=== PATIENT | female | born 1965 | race Caucasian/White ===

== ENCOUNTER → 2018-01-26 | Outpatient (CLI) | payer OTHER | END | disposition home or self-care (01) | LOC: WOUND 09:15 | PROVIDERS: ATTEND Podiatrist Foot & Ankle Surgery | DX: E11.621 Type 2 diabetes mellitus with foot ulcer (principal); L97.521 Non-pressure chronic ulcer of other part of left foot limited to breakdown of skin; E11.42 Type 2 diabetes mellitus with diabetic polyneuropathy; Z89.412 Acquired absence of left great toe | CPT/HCPCS: 99204 ==

== ENCOUNTER 2019-04-23 19:34 | Emergency (ER) | payer OTHER ==
[~2019-04-23] VITALS: Ht 167.6 cm; Wt 80.0 kg
[2019-04-23 19:42] VITALS: BP 154/102
[2019-04-23] MEDS ORDERED: FLUORESCEIN OPHTHALMIC 1 MG STRIP ONE (19:49)
[2019-04-23] MEDS ORDERED: PROPARACAINE OPHTH 0.5%, 15ML ONE (19:50)
--- NOTE | 2019-04-23 19:51 | NUR ---
ASSESSMENT MADE. CHART UP FOR MD TO SEE.
[2019-04-23] MEDS ORDERED: PROPARACAINE OPHTH 0.5%, 15ML EACHEYE ONE (20:00)
[2019-04-23] MEDS ORDERED: FLUORESCEIN/BENOXINATE 5 ML DROPS OP ONE (20:00)
--- NOTE | 2019-04-23 21:09 | NUR ---
PT IN CHAIR IN ROOM AT THIS TIME; AWAITING OPTHO CONSULT.
--- NOTE | 2019-04-23 22:04 | NUR ---
Patient/Caregiver given discharge instructions and they have confirmed that they understand the instructions. Patient ambulatory with steady gait.
== END 2019-04-23 22:06 | disposition home or self-care (01) ==
LOC: ED 22:00
DX: S05.01XA Injury of conjunctiva and corneal abrasion without foreign body, right eye, initial encounter (principal); H57.11 Ocular pain, right eye; E11.319 Type 2 diabetes mellitus with unspecified diabetic retinopathy without macular edema; X58.XXXA Exposure to other specified factors, initial encounter; Y93.9 Activity, unspecified; Y92.89 Other specified places as the place of occurrence of the external cause; Y99.8 Other external cause status
CPT/HCPCS: 99283

== ENCOUNTER → 2020-04-02 | Outpatient (CLI) | payer OTHER ==
[2020-04-02 13:19] LABS: ALANINE AMINOTRANSFERASE 25 U/L (12-78); ANION GAP 7 mmol/L (5-15); CALCIUM 8.9 mg/dL (8.5-10.1); CHLORIDE 104 mmol/L (98-107)
[2020-04-02 13:22] LABS: ALBUMIN 3.3 g/dL (3.4-5.0); ALKALINE PHOSPHATASE 118 U/L (45-117); BILIRUBIN,TOTAL 0.3 mg/dL (0.2-1.0); CHOLESTEROL, TOTAL 184 mg/dL (140-239); CREATININE 1.09 mg/dL (0.55-1.02); HDL CHOL % 25 % (28-40); HDL CHOLESTEROL (DIRECT) 46 mg/dL (40-60); LDL CHOLESTEROL,CALCULATED 102 mg/dL (54-169); LDL/HDL RATIO 2.2 (0.5-3.0); TRIGLYCERIDES 181 mg/dL (50-200); VLDL CHOLESTEROL 36 mg/dL (0-25)
== END | disposition home or self-care (01) ==
LOC: CFH 08:25
PROVIDERS: ATTEND Family Medicine
DX: E11.65 Type 2 diabetes mellitus with hyperglycemia (principal); E78.2 Mixed hyperlipidemia; Z20.2 Contact with and (suspected) exposure to infections with a predominantly sexual mode of transmission
CPT/HCPCS: 36415; 80053; 80061; 82043; 83036; 86592; 87491; 87591; 87806; G0475

== ENCOUNTER 2020-05-28 22:03 | Emergency (ER) | payer OTHER ==
[~2020-05-28] VITALS: Ht 170.2 cm; Wt 113.0 kg
--- NOTE | 2020-05-28 22:15 | NUR ---
LATE ENTRY: first contact with pt: pt resting in marisabel, son at bs. pt changed into gown. pt is moaning stating "oh my god, oh my god, oh my god". pt states she came in tonight due to nausea and vomitting since 1600. pt reports throwing up bile about every 30 minutes. pt states moderate amounts. Denies diarrhea. pt states she had a bm yesterday and is still passing flatus. pt reports slight epigastric pain, likely from vomitting. Son at BS. pt placed on bp/spo2 monitoring. wctere. Milagros JACINTO at bs for eval and poc.
[2020-05-28] MEDS ORDERED: SITA1TAB5 PO (22:29)
[2020-05-28] MEDS ORDERED: [UNRECOGNIZED DRUG - OTHER] SQ (22:29)
[2020-05-28] MEDS ORDERED: DAPA10TA PO (22:29)
[2020-05-28] MEDS ORDERED: GABA300C PO (22:30)
[2020-05-28] MEDS ORDERED: ONDANSETRON ODT 4 MG ONE (22:37)
[2020-05-28 22:52] LABS: BASOPHILS # (AUTO) 0.02 x10^3/uL (0-0.1); BASOPHILS % (AUTO) 0 % (0-1); EOSINOPHILS # (AUTO) 0.03 x10^3/uL (0-0.4); EOSINOPHILS % (AUTO) 0 % (1-7); LYMPHOCYTES # (AUTO) 1.66 x10^3/uL (1-3.4); LYMPHOCYTES % (AUTO) 16 % (22-44); MD NO; MEAN CORPUSCULAR HEMOGLOBIN 30.8 pg (27.0-34.8); MEAN CORPUSCULAR HGB CONC 32.5 g/dL (32.4-35.8); MEAN PLATELET VOLUME 7.3 fL (7.4-10.4); MONOCYTES # (AUTO) 0.28 x10^3/uL (0.2-0.8); MONOCYTES % (AUTO) 3 % (2-9); NEUTROPHILS # (AUTO) 8.69 x10^3/uL (1.8-6.8); NEUTROPHILS % (AUTO) 81 % (42-75); PLATELET COUNT 296 x10^3/uL (130-400); RED BLOOD COUNT 4.88 x10^6/uL (3.82-5.3); RED CELL DISTRIBUTION WIDTH 13.9 % (9.6-15.2)
[2020-05-28] MEDS ORDERED: ONDANSETRON ODT 4 MG PO ONE (23:00)
[2020-05-28 23:05] LABS: CALCIUM 9.2 mg/dL (8.5-10.1); CHLORIDE 104 mmol/L (98-107)
[2020-05-28 23:11] LABS: ALANINE AMINOTRANSFERASE 26 U/L (12-78); ALBUMIN 3.5 g/dL (3.4-5.0); ALKALINE PHOSPHATASE 121 U/L (45-117); ANION GAP 8 mmol/L (5-15); BILIRUBIN,TOTAL 0.4 mg/dL (0.2-1.0); CREATININE 0.95 mg/dL (0.55-1.02); TOTAL PROTEIN 8.3 g/dL (6.4-8.2)
[2020-05-28] MEDS ORDERED: MORPHINE SULFATE 4 MG/ML, 1ML ONE (23:15)
[2020-05-28] MEDS ORDERED: PROMETHAZINE 25 MG/ML, 1ML ONE (23:15)
--- NOTE | 2020-05-28 23:29 | NUR ---
pt medicated per jan, pt still laying in bed groaning. pt had one episode of emesis since arrival, approx 200 milliliters of bile colored fluid. pt placed on 2L NC to maintain O2 sat. waiting on US. WCTM. given additional warm blankets for comfort.
[2020-05-28] MEDS ORDERED: MORPHINE SULFATE 4 MG/ML, 1ML IVPush ONE (23:30)
[2020-05-28] MEDS ORDERED: PROMETHAZINE 25 MG/ML, 1ML IM ONE (23:30)
[2020-05-28 23:59] LABS: TROPONIN I < 0.015 ng/mL (0.000-0.045)
--- NOTE | 2020-05-29 00:37 | NUR ---
pt laying in gurney, eyes closed, states "i am feeling a little better", denies additional needs at this time, updated on POC. VSS, NAD, WCTM. waiting for US reults and recheck.
[2020-05-29] MEDS ORDERED: MAALOX/HYOSCYAMINE/LIDOCAINE 45 ML BTL PO ONE (01:00)
--- NOTE | 2020-05-29 01:02 | NUR ---
LATE ENTRY: PT TO CT VIA GURNEY. NAD, RESP WNL, APPEARS COMFORTABLE. PT NOT GROANING OR HOLDING EMESIS BAGS ANYMORE.
--- NOTE | 2020-05-29 01:14 | NUR ---
Note ciro in ED - 05/29/20 at 0114 by AIDAN LATE ENTRY: PT TO CT VIA NEHEMIAH. NAD, RESP WNL, APPEARS COMFORTABLE. PT NOT GROANING OR HOLDING EMESIS BAGS ANYMORE.
--- NOTE | 2020-05-29 01:14 | NUR ---
LATE ENTRY: PT TO CT VIA GURNEY. NAD, RESP WNL, APPEARS COMFORTABLE. PT NOT GROANING OR HOLDING EMESIS BAGS ANYMORE.
[2020-05-29] MEDS ORDERED: OMNIPAQUE 350 MG/ML, 100ML BOTTLE ONE (01:16)
[2020-05-29] MEDS ORDERED: MORPHINE SULFATE 4 MG/ML, 1ML ONE ×2 (01:20→03:16)
--- NOTE | 2020-05-29 01:22 | NUR ---
pt back from CT, pt ambulated to and from restroom with a smooth and steady gait. pt states "pain is getting worse". pt medicated per jan. pt resting back in marisabel, SUZANNE, ABHI. waiting for CT results.
[2020-05-29] MEDS ORDERED: MAALOX/HYOSCYAMINE/LIDOCAINE 45 ML BTL ONE (01:31)
--- NOTE | 2020-05-29 02:47 | NUR ---
pt straight cathed for urine sample, UA walked to lab. Pt tolerated procedure well. Resting in gurney for comfort, updated on POC. NAD, VSS, WCTM. waiting for UA results.
[2020-05-29] MEDS ORDERED: MORPHINE SULFATE 4 MG/ML, 1ML IVPush ONE (03:00)
[2020-05-29] MEDS ORDERED: ONDANSETRON 2MG/ML, 2ML IVPush ONE (03:00)
[2020-05-29] MEDS ORDERED: ONDANSETRON 2MG/ML, 2ML ONE (03:21)
[2020-05-29 03:22] LABS: MICROSCOPIC AUTO
--- NOTE | 2020-05-29 03:23 | NUR ---
PT REPORTED INCREASING PAIN AND NAUSEA. PT MEDICATED PER MAR. PT STATES "I AM HOPING ILL BE ABLE TO SLEEP NOW". PT CONDITION OTHERWISE UNCHANGED. WCTM. WAITING FOR UA RESULTS.
[2020-05-29 03:49] VITALS: BP 146/83
--- NOTE | 2020-05-29 04:38 | NUR ---
Patient given discharge instructions and they have confirmed that they understand the instructions. Patient ambulatory with steady gait. Pt informed that she cant drive at this time due to medications. Pt states she wont drive and will get a ride. NAD, VSS, no belongings left in room at time of dc.
[2020-06-06] MEDS ORDERED: PHEN-583 PO ×2 (13:51)
[2020-06-06] MEDS ORDERED: LEVO750T26 PO ×2 (13:52)
[2020-06-12] MEDS ORDERED: METO10TA82 PO ×2 (15:16)
== END 2020-05-29 04:44 | disposition home or self-care (01) ==
LOC: ED 05-29 01:35
DX: N20.2 Calculus of kidney with calculus of ureter (principal); R10.13 Epigastric pain; R11.0 Nausea; E11.9 Type 2 diabetes mellitus without complications; I51.7 Cardiomegaly
CPT/HCPCS: 36415; 74177; 76700; 80053; 81001; 83690; 84484; 85025; 87077; 87086; 87186; 93005; 96372; 96374; 96375; 96376; 99285; J2270; J2405; J2550; Q0162; Q9967

== ENCOUNTER 2020-05-30 10:42 | Emergency (ER) | payer OTHER ==
[~2020-05-30] VITALS: Ht 170.2 cm; Wt 113.0 kg
[~2020-05-30 10:42] MED LIST: DAPA10TA PO; GABA300C PO; SITA1TAB5 PO; [UNRECOGNIZED DRUG - OTHER] SQ
[2020-05-30] MEDS ORDERED: PROMETHAZINE 25 MG/ML, 1ML ONE (11:13)
[2020-05-30] MEDS ORDERED: HYDROmorphone 1 MG/ML, 1ML INJ ONE (11:13)
[2020-05-30] MEDS ORDERED: HYDROmorphone 1 MG/ML, 1ML INJ IVPush PRN (11:30)
[2020-05-30] MEDS ORDERED: PROMETHAZINE 25 MG/ML, 1ML IM ONE (11:30)
[2020-05-30] MEDS ORDERED: SODIUM CHLORIDE 0.9% 1,000ML IVBOLUS ONE (11:30)
[2020-05-30] MEDS ORDERED: MORPHINE SULFATE 4 MG/ML, 1ML IVPush PRN (11:30)
[2020-05-30] MEDS ORDERED: SODIUM CHLORIDE FLUSH 10ML SYR IVF ONE (11:30)
--- NOTE | 2020-05-30 11:49 | NUR ---
PT MEDICATED ORDERED. PT DESATED AFTER DILAUDID AND PLACED ON 2 LITERS OS NC BRING HER SAT UP TO 100%. PT C/O LLQ ABD TODAY WITH LEFT FLANK PAIN IN CONTRAST TO PAIN YESTERDAY RELATED TO KIDNEY STONE IN THE RIGHT UVJ. PT ON MONITOR. CALL LIGHT WITHIN REACH.
[2020-05-30 11:56] LABS: ALANINE AMINOTRANSFERASE 25 U/L (12-78); ALBUMIN 3.5 g/dL (3.4-5.0); ANION GAP 9 mmol/L (5-15); CALCIUM 8.8 mg/dL (8.5-10.1); CHLORIDE 101 mmol/L (98-107); CREATININE 1.19 mg/dL (0.55-1.02)
[2020-05-30 11:58] LABS: MEAN CORPUSCULAR HEMOGLOBIN 30.9 pg (27.0-34.8); MEAN CORPUSCULAR VOLUME 93.7 fL (80-100); MEAN PLATELET VOLUME 7.7 fL (7.4-10.4); PLATELET COUNT 284 x10^3/uL (130-400); RED BLOOD COUNT 4.97 x10^6/uL (3.82-5.3); RED CELL DISTRIBUTION WIDTH 13.9 % (9.6-15.2)
[2020-05-30 12:03] LABS: ALKALINE PHOSPHATASE 118 U/L (45-117); BILIRUBIN,TOTAL 0.4 mg/dL (0.2-1.0); TOTAL PROTEIN 8.4 g/dL (6.4-8.2)
--- NOTE | 2020-05-30 12:48 | NUR ---
PT IN CT.
[2020-05-30 12:50] LABS: BASOPHILS # (AUTO) 0.08 x10^3/uL (0-0.1); BASOPHILS % (AUTO) 1 % (0-1); EOSINOPHILS # (AUTO) 0.08 x10^3/uL (0-0.4); EOSINOPHILS % (AUTO) 1 % (1-7); LYMPHOCYTES # (AUTO) 2.25 x10^3/uL (1-3.4); LYMPHOCYTES % (AUTO) 17 % (22-44); MD SCAN; MONOCYTES % (AUTO) 3 % (2-9); NEUTROPHILS % (AUTO) 78 % (42-75)
[2020-05-30 13:00] VITALS: BP 149/84
[2020-05-30] MEDS ORDERED: OMNIPAQUE 350 MG/ML, 100ML BOTTLE ONE (13:03)
[2020-05-30 13:18] LABS: MICROSCOPIC NOT IND
--- NOTE | 2020-05-30 13:27 | NUR ---
GLENN PAC AT BEDSIDE FOR RECHECK.
== END 2020-05-30 14:45 | disposition home or self-care (01) ==
LOC: ED 13:51
DX: N13.2 Hydronephrosis with renal and ureteral calculous obstruction (principal); D72.829 Elevated white blood cell count, unspecified; R10.12 Left upper quadrant pain; R10.32 Left lower quadrant pain; R11.10 Vomiting, unspecified; E11.9 Type 2 diabetes mellitus without complications
CPT/HCPCS: 36415; 74177; 80053; 81003; 83605; 83690; 85025; 96361; 96372; 96374; 99285; J1170; J2550; J7030; Q9967

== ENCOUNTER 2020-05-31 12:51 | Inpatient (IN) | payer OTHER ==
[~2020-05-31] VITALS: Ht 170.2 cm; Wt 116.6 kg
[2020-05-31] MEDS ORDERED: KETOROLAC 30 MG/1 ML IVPush ONE (14:00)
[2020-05-31] MEDS ORDERED: DIPHENHYDRAMINE 50 MG/ML, 1ML IVPush ONE (14:00)
[2020-05-31] MEDS ORDERED: METOCLOPRAMIDE 5 MG/ML, 2ML IVPush ONE (14:00)
[2020-05-31] MEDS ORDERED: HYDROmorphone 2 MG/ML, 1ML IVPush PRN (14:00)
[2020-05-31] MEDS ORDERED: DIPHENHYDRAMINE 50 MG/ML, 1ML ONE (14:05)
[2020-05-31] MEDS ORDERED: METOCLOPRAMIDE 5 MG/ML, 2ML ONE (14:05)
[2020-05-31] MEDS ORDERED: KETOROLAC 30 MG/1 ML ONE (14:05)
[2020-05-31] MEDS ORDERED: HYDROmorphone 2 MG/ML, 1ML ONE (14:05)
[2020-05-31 14:11] LABS: MEAN CORPUSCULAR HEMOGLOBIN 31.1 pg (27.0-34.8); MEAN CORPUSCULAR HGB CONC 33.4 g/dL (32.4-35.8); MEAN CORPUSCULAR VOLUME 93.1 fL (80-100); MEAN PLATELET VOLUME 7.4 fL (7.4-10.4); PLATELET COUNT 272 x10^3/uL (130-400); RED BLOOD COUNT 4.89 x10^6/uL (3.82-5.3); RED CELL DISTRIBUTION WIDTH 13.8 % (9.6-15.2)
--- NOTE | 2020-05-31 14:15 | NUR ---
PIV PLACED, LABS DRAWN AND SENT TO LAB. MEDS ADMIN PER JAN. PT PLACED ON OXYGEN FOR SAFETY. PT IS MORE RELAXED. CALL LIGHT IN REACH. MONITORING ATTACHED.
[2020-05-31 14:21] LABS: ANION GAP 7 mmol/L (5-15); CALCIUM 9.1 mg/dL (8.5-10.1); CHLORIDE 103 mmol/L (98-107)
--- NOTE | 2020-05-31 14:29 | NUR ---
UA COLLECTED VIA STRAIGHT CATH AND TAKEN TO LAB. WARM BLANKET PROVIDED. DEIRDRE
[2020-05-31 14:43] LABS: BASOPHILS # (AUTO) 0.02 x10^3/uL (0-0.1); BASOPHILS % (AUTO) 0 % (0-1); EOSINOPHILS # (AUTO) 0.04 x10^3/uL (0-0.4); EOSINOPHILS % (AUTO) 0 % (1-7); LYMPHOCYTES # (AUTO) 1.41 x10^3/uL (1-3.4); LYMPHOCYTES % (AUTO) 14 % (22-44); MD SCAN; MONOCYTES # (AUTO) 0.46 x10^3/uL (0.2-0.8); MONOCYTES % (AUTO) 5 % (2-9); NEUTROPHILS # (AUTO) 8.22 x10^3/uL (1.8-6.8); NEUTROPHILS % (AUTO) 81 % (42-75)
[2020-05-31 14:47] LABS: MICROSCOPIC INDICATED
--- NOTE | 2020-05-31 14:56 | NUR ---
US AT BEDSIDE.
--- NOTE | 2020-05-31 15:35 | NUR ---
US COMPLETE. PT STATES SHE IS FEELING MUCH BETTER AFTER MEDS. HAD AMBULATED TO RESTROOM AND BACK WITH STEADY GAIT. PT RESTING COMFORTABLY ON GURNEY. DEIRDRE.
--- NOTE | 2020-05-31 15:45 | NUR ---
ALL RESULTS ARE BACK AT THIS TIME. CHART UP FOR RECHECK.
--- NOTE | 2020-05-31 16:21 | NUR ---
PT TO BE ADMITTED
--- NOTE | 2020-05-31 17:43 | NUR ---
HOSPITALIST AT BEDSIDE.
--- NOTE | 2020-05-31 17:50 | NUR ---
REPORT GIVEN TO STEPHANIE KHAN.
[2020-05-31] MEDS ORDERED: LORazepam 1MG TABLET PO PRN (18:30)
[2020-05-31] MEDS ORDERED: ZOLPIDEM 5MG TABLET PO PRN (18:30)
[2020-05-31] MEDS ORDERED: BISACODYL 10 MG SUPP PR PRN (18:30)
[2020-05-31] MEDS ORDERED: ACETAMINOPHEN 325 MG TABLET PO PRN (18:30)
[2020-05-31] MEDS ORDERED: hydrALAzine 20 MG/ML, 1ML IVPush PRN (18:30)
[2020-05-31 18:34] VITALS: BP 107/66
[2020-05-31] MEDS: LEVOFLOXACIN/PMX 750MG/150ML 150 ML IV SCH (20:28)
[2020-05-31] MEDS: FAMOTIDINE 20 MG TABLET PO SCH (20:28)
[2020-05-31] MEDS: LACTATED RINGERS 1,000 ML IV SCH (20:30)
[2020-05-31] MEDS: INSULIN LISPRO 100 UNITS/ML, PEN SQ-INSULIN SCH (20:40)
[2020-05-31] MEDS: POLYETHYLENE GLYCOL 17 GM PACKET PO PRN (22:30)
[2020-06-01 00:05] VITALS: BP 108/70
[2020-06-01 06:04] LABS: BASOPHILS # (AUTO) 0.03 x10^3/uL (0-0.1); BASOPHILS % (AUTO) 0 % (0-1); EOSINOPHILS # (AUTO) 0.15 x10^3/uL (0-0.4); EOSINOPHILS % (AUTO) 2 % (1-7); LYMPHOCYTES # (AUTO) 1.97 x10^3/uL (1-3.4); LYMPHOCYTES % (AUTO) 24 % (22-44); MD NO; MEAN CORPUSCULAR HGB CONC 33.3 g/dL (32.4-35.8); MEAN CORPUSCULAR VOLUME 93.2 fL (80-100); MEAN PLATELET VOLUME 7.5 fL (7.4-10.4); MONOCYTES # (AUTO) 0.82 x10^3/uL (0.2-0.8); MONOCYTES % (AUTO) 10 % (2-9); NEUTROPHILS # (AUTO) 5.39 x10^3/uL (1.8-6.8); NEUTROPHILS % (AUTO) 65 % (42-75); PLATELET COUNT 257 x10^3/uL (130-400); RED BLOOD COUNT 4.46 x10^6/uL (3.82-5.3); RED CELL DISTRIBUTION WIDTH 13.8 % (9.6-15.2)
[2020-06-01 06:16] LABS: ALANINE AMINOTRANSFERASE 26 U/L (12-78); ALBUMIN 2.9 g/dL (3.4-5.0); ANION GAP 5 mmol/L (5-15); CALCIUM 8.6 mg/dL (8.5-10.1); CHLORIDE 105 mmol/L (98-107)
[2020-06-01 06:19] LABS: ALKALINE PHOSPHATASE 97 U/L (45-117); BILIRUBIN,TOTAL 0.3 mg/dL (0.2-1.0); CREATININE 1.03 mg/dL (0.55-1.02); TOTAL PROTEIN 6.9 g/dL (6.4-8.2)
[2020-06-01] MEDS: morphine SULFATE 10 MG/ML, 1ML IVPush PRN ×4 (06:20→20:45)
[2020-06-01] MEDS: ONDANSETRON 2MG/ML, 2ML IVPush PRN ×2 (06:20→20:51)
[2020-06-01 06:56] VITALS: BP 154/87
[2020-06-01] MEDS: INSULIN LISPRO 100 UNITS/ML, PEN SQ-INSULIN SCH ×4 (07:00→20:58)
[2020-06-01] MEDS: LACTATED RINGERS 1,000 ML IV SCH ×2 (07:33→18:05)
[2020-06-01] MEDS: SENNA/DOCUSATE TABLET PO SCH (09:00)
[2020-06-01] MEDS: FAMOTIDINE 20 MG TABLET PO SCH (09:00)
[2020-06-01] MEDS ORDERED: MORPHINE SULFATE 4 MG/ML, 1ML IVPush ONE (09:30)
[2020-06-01] MEDS: PANTOPRAZOLE 40 MG IV IVPush SCH ×2 (09:38→22:19)
[2020-06-01] MEDS: ONDANSETRON ODT 4 MG PO PRN (09:41)
[2020-06-01] MEDS ORDERED: MIDAZOLAM 1 MG/ML, 2ML ONE (10:57)
[2020-06-01] MEDS ORDERED: FENTANYL PF 250 MCG/5ML ONE (10:58)
[2020-06-01] MEDS ORDERED: ROCURONIUM 10MG/ML,5ML ONE (10:58)
[2020-06-01] MEDS ORDERED: PROPOFOL 10 MG/ML, 20ML ONE (10:58)
[2020-06-01] MEDS ORDERED: DEXAMETHASONE 4 MG/ML, 1ML ONE (10:58)
[2020-06-01] MEDS ORDERED: ONDANSETRON 2MG/ML, 2ML ONE (10:59)
[2020-06-01] MEDS ORDERED: ACETAMINOPHEN 325 MG TABLET PO PRN (11:00)
[2020-06-01] MEDS ORDERED: LABETALOL 5MG/ML, 20ML IV PRN (11:00)
[2020-06-01] MEDS ORDERED: FENTANYL PF 100 MCG/2ML IV PRN (11:00)
[2020-06-01] MEDS ORDERED: hydrALAzine 20 MG/ML, 1ML IV PRN (11:00)
[2020-06-01] MEDS ORDERED: ONDANSETRON 2MG/ML, 2ML IVPush PRN (11:00)
[2020-06-01] MEDS ORDERED: MEPERIDINE/PF 25MG/0.5ML IVPush PRN (11:00)
[2020-06-01] MEDS ORDERED: PROMETHAZINE 25 MG/ML, 1ML IVPush PRN (11:00)
[2020-06-01] MEDS ORDERED: HYDROmorphone 1 MG/ML, 1ML INJ IVPush PRN (11:00)
[2020-06-01] MEDS ORDERED: OXYcodone 5 MG/5 ML ORAL.SOL UDC PO PRN (11:00)
[2020-06-01] MEDS ORDERED: OMNIPAQUE 350 MG/ML, 50 ML BOTTLE ONE (12:43)
[2020-06-01] MEDS ORDERED: PHENAZOPYRIDINE 200 MG TABLET ONE (12:57)
[2020-06-01] MEDS ORDERED: FENTANYL PF 100 MCG/2ML ONE (12:58)
[2020-06-01] MEDS ORDERED: PHENAZOPYRIDINE 200 MG TABLET PO ONE (13:30)
[2020-06-01 14:30] VITALS: BP 143/84
[2020-06-01] MEDS: OXYcodone IR 5MG TABLET PO PRN (18:11)
[2020-06-01 18:43] VITALS: BP 133/84
[2020-06-01] MEDS: PHENAZOPYRIDINE 200 MG TABLET PO SCH (20:47)
[2020-06-01] MEDS: LEVOFLOXACIN/PMX 750MG/150ML 150 ML IV SCH (20:48)
[2020-06-02 00:38] VITALS: BP 156/82
[2020-06-02] MEDS: ONDANSETRON ODT 4 MG PO PRN (00:48)
[2020-06-02] MEDS: morphine SULFATE 10 MG/ML, 1ML IVPush PRN ×3 (00:48→11:29)
[2020-06-02] MEDS: ONDANSETRON 2MG/ML, 2ML IVPush PRN ×3 (04:43→23:47)
[2020-06-02 05:45] LABS: BASOPHILS # (AUTO) 0.03 x10^3/uL (0-0.1); BASOPHILS % (AUTO) 0 % (0-1); EOSINOPHILS # (AUTO) 0.06 x10^3/uL (0-0.4); EOSINOPHILS % (AUTO) 1 % (1-7); LYMPHOCYTES # (AUTO) 2.18 x10^3/uL (1-3.4); LYMPHOCYTES % (AUTO) 18 % (22-44); MD NO; MEAN CORPUSCULAR HGB CONC 33.1 g/dL (32.4-35.8); MEAN CORPUSCULAR VOLUME 93.6 fL (80-100); MEAN PLATELET VOLUME 7.8 fL (7.4-10.4); MONOCYTES # (AUTO) 0.99 x10^3/uL (0.2-0.8); MONOCYTES % (AUTO) 8 % (2-9); NEUTROPHILS # (AUTO) 8.74 x10^3/uL (1.8-6.8); NEUTROPHILS % (AUTO) 73 % (42-75); PLATELET COUNT 263 x10^3/uL (130-400); RED BLOOD COUNT 4.62 x10^6/uL (3.82-5.3); RED CELL DISTRIBUTION WIDTH 13.6 % (9.6-15.2)
[2020-06-02 05:55] LABS: ANION GAP 6 mmol/L (5-15); CALCIUM 8.4 mg/dL (8.5-10.1); CHLORIDE 103 mmol/L (98-107)
[2020-06-02 05:58] LABS: CREATININE 0.87 mg/dL (0.55-1.02)
[2020-06-02] MEDS: INSULIN LISPRO 100 UNITS/ML, PEN SQ-INSULIN SCH ×4 (07:00→21:00)
[2020-06-02 07:35] VITALS: BP 145/79
[2020-06-02] MEDS: PANTOPRAZOLE 40 MG IV IVPush SCH ×2 (09:22→20:12)
[2020-06-02] MEDS: PHENAZOPYRIDINE 200 MG TABLET PO SCH ×3 (09:22→20:12)
[2020-06-02] MEDS: SENNA/DOCUSATE TABLET PO SCH (09:22)
[2020-06-02] MEDS: LACTATED RINGERS 1,000 ML IV SCH (09:40)
[2020-06-02] MEDS: OXYcodone IR 5MG TABLET PO PRN (12:14)
[2020-06-02 13:08] VITALS: BP 170/88
[2020-06-02] MEDS ORDERED: HYDROmorphone 1 MG/ML, 1ML INJ IV PRN (13:30)
[2020-06-02] MEDS: HYDROmorphone 1 MG/ML, 1ML INJ IV PRN ×3 (13:55→23:43)
[2020-06-02] MEDS ORDERED: OMNIPAQUE 350 MG/ML, 100ML BOTTLE ONE (14:21)
[2020-06-02] MEDS ORDERED: MAALOX/HYOSCYAMINE/LIDOCAINE 45 ML BTL PO ONE (16:30)
[2020-06-02 19:00] VITALS: BP 113/69
[2020-06-02] MEDS: LEVOFLOXACIN/PMX 750MG/150ML 150 ML IV SCH (20:14)
[2020-06-02] MEDS: POLYETHYLENE GLYCOL 17 GM PACKET PO PRN (20:29)
[2020-06-03] MEDS: OXYcodone IR 5MG TABLET PO PRN (00:24)
[2020-06-03 00:34] VITALS: BP 103/69
[2020-06-03 05:54] LABS: BASOPHILS # (AUTO) 0.04 x10^3/uL (0-0.1); BASOPHILS % (AUTO) 0 % (0-1); EOSINOPHILS % (AUTO) 2 % (1-7); LYMPHOCYTES # (AUTO) 3.09 x10^3/uL (1-3.4); LYMPHOCYTES % (AUTO) 25 % (22-44); MD NO; MEAN CORPUSCULAR HEMOGLOBIN 31.2 pg (27.0-34.8); MEAN CORPUSCULAR HGB CONC 33.5 g/dL (32.4-35.8); MEAN CORPUSCULAR VOLUME 93.1 fL (80-100); MEAN PLATELET VOLUME 7.4 fL (7.4-10.4); MONOCYTES # (AUTO) 1.02 x10^3/uL (0.2-0.8); MONOCYTES % (AUTO) 8 % (2-9); NEUTROPHILS # (AUTO) 7.93 x10^3/uL (1.8-6.8); NEUTROPHILS % (AUTO) 65 % (42-75); PLATELET COUNT 263 x10^3/uL (130-400); RED CELL DISTRIBUTION WIDTH 13.7 % (9.6-15.2)
[2020-06-03 06:01] LABS: ALANINE AMINOTRANSFERASE 21 U/L (12-78); ALBUMIN 2.9 g/dL (3.4-5.0); ANION GAP 5 mmol/L (5-15); CALCIUM 8.7 mg/dL (8.5-10.1); CHLORIDE 101 mmol/L (98-107)
[2020-06-03 06:06] LABS: ALKALINE PHOSPHATASE 89 U/L (45-117); BILIRUBIN,TOTAL 0.4 mg/dL (0.2-1.0); CREATININE 1.07 mg/dL (0.55-1.02); TOTAL PROTEIN 7.3 g/dL (6.4-8.2)
[2020-06-03 06:59] VITALS: BP 150/82
[2020-06-03] MEDS: INSULIN LISPRO 100 UNITS/ML, PEN SQ-INSULIN SCH ×4 (07:00→20:47)
[2020-06-03] MEDS: PANTOPRAZOLE 40 MG IV IVPush SCH ×2 (07:54→20:59)
[2020-06-03] MEDS: PHENAZOPYRIDINE 200 MG TABLET PO SCH ×3 (07:55→19:26)
[2020-06-03] MEDS: SENNA/DOCUSATE TABLET PO SCH ×2 (07:55→20:47)
[2020-06-03] MEDS ORDERED: SINCALIDE (KINEVAC) 5 MCG ONE (10:04)
[2020-06-03] MEDS: HYDROmorphone 1 MG/ML, 1ML INJ IV PRN ×4 (10:54→23:00)
[2020-06-03 13:21] VITALS: BP 146/83
[2020-06-03] MEDS ORDERED: PROPOFOL 50 ML ONE (14:24)
[2020-06-03] MEDS ORDERED: PROMETHAZINE 25 MG/ML, 1ML IVPush PRN (15:00)
[2020-06-03] MEDS ORDERED: OXYcodone 5 MG/5 ML ORAL.SOL UDC PO PRN (15:00)
[2020-06-03] MEDS ORDERED: ACETAMINOPHEN 325 MG TABLET PO PRN (15:00)
[2020-06-03] MEDS ORDERED: ONDANSETRON 2MG/ML, 2ML IVPush PRN (15:00)
[2020-06-03] MEDS ORDERED: PROMETHAZINE 25 MG SUPP PR PRN (15:00)
[2020-06-03] MEDS ORDERED: hydrALAzine 20 MG/ML, 1ML IV PRN (15:00)
[2020-06-03] MEDS ORDERED: LABETALOL 5MG/ML, 20ML IV PRN (15:00)
[2020-06-03 18:40] VITALS: BP 152/90
[2020-06-03] MEDS: ONDANSETRON 2MG/ML, 2ML IVPush PRN (20:05)
[2020-06-03] MEDS: LEVOFLOXACIN/PMX 750MG/150ML 150 ML IV SCH (20:52)
[2020-06-03] MEDS: POLYETHYLENE GLYCOL 17 GM PACKET PO SCH (20:59)
[2020-06-04 00:35] VITALS: BP 103/68
[2020-06-04] MEDS: ONDANSETRON 2MG/ML, 2ML IVPush PRN ×2 (06:01→09:37)
[2020-06-04] MEDS: HYDROmorphone 1 MG/ML, 1ML INJ IV PRN ×2 (06:01→09:37)
[2020-06-04] MEDS: INSULIN LISPRO 100 UNITS/ML, PEN SQ-INSULIN SCH ×4 (07:43→21:33)
[2020-06-04 08:14] VITALS: BP 133/80
[2020-06-04] MEDS ORDERED: OPIUM/BELLADONNA SUPP.RECT 16.2-30 MG PR PRN (08:30)
[2020-06-04 09:32] LABS: BASOPHILS # (AUTO) 0.05 x10^3/uL (0-0.1); BASOPHILS % (AUTO) 0 % (0-1); EOSINOPHILS # (AUTO) 0.23 x10^3/uL (0-0.4); EOSINOPHILS % (AUTO) 2 % (1-7); LYMPHOCYTES # (AUTO) 2.04 x10^3/uL (1-3.4); LYMPHOCYTES % (AUTO) 18 % (22-44); MD NO; MEAN CORPUSCULAR HEMOGLOBIN 30.5 pg (27.0-34.8); MEAN CORPUSCULAR HGB CONC 32.3 g/dL (32.4-35.8); MEAN CORPUSCULAR VOLUME 94.4 fL (80-100); MEAN PLATELET VOLUME 7.3 fL (7.4-10.4); MONOCYTES # (AUTO) 0.89 x10^3/uL (0.2-0.8); MONOCYTES % (AUTO) 8 % (2-9); NEUTROPHILS # (AUTO) 7.95 x10^3/uL (1.8-6.8); NEUTROPHILS % (AUTO) 71 % (42-75); PLATELET COUNT 257 x10^3/uL (130-400); RED BLOOD COUNT 4.59 x10^6/uL (3.82-5.3); RED CELL DISTRIBUTION WIDTH 13.4 % (9.6-15.2)
[2020-06-04] MEDS: PANTOPRAZOLE 40 MG IV IVPush SCH ×2 (09:40→22:34)
[2020-06-04] MEDS: SENNA/DOCUSATE TABLET PO SCH ×2 (09:40→20:39)
[2020-06-04] MEDS: PHENAZOPYRIDINE 200 MG TABLET PO SCH ×3 (09:40→20:36)
[2020-06-04] MEDS: POLYETHYLENE GLYCOL 17 GM PACKET PO SCH ×2 (09:42→20:40)
[2020-06-04 15:08] VITALS: BP 127/80
[2020-06-04] MEDS: LEVOFLOXACIN/PMX 750MG/150ML 150 ML IV SCH (20:36)
[2020-06-04 20:55] VITALS: BP 127/78
[2020-06-05 00:45] VITALS: BP 117/76
[2020-06-05 06:14] LABS: BASOPHILS # (AUTO) 0.04 x10^3/uL (0-0.1); BASOPHILS % (AUTO) 0 % (0-1); EOSINOPHILS # (AUTO) 0.37 x10^3/uL (0-0.4); EOSINOPHILS % (AUTO) 4 % (1-7); LYMPHOCYTES # (AUTO) 2.29 x10^3/uL (1-3.4); LYMPHOCYTES % (AUTO) 26 % (22-44); MD NO; MEAN CORPUSCULAR HGB CONC 33.3 g/dL (32.4-35.8); MEAN CORPUSCULAR VOLUME 93.2 fL (80-100); MEAN PLATELET VOLUME 7.7 fL (7.4-10.4); MONOCYTES # (AUTO) 0.78 x10^3/uL (0.2-0.8); MONOCYTES % (AUTO) 9 % (2-9); NEUTROPHILS # (AUTO) 5.48 x10^3/uL (1.8-6.8); NEUTROPHILS % (AUTO) 61 % (42-75); PLATELET COUNT 266 x10^3/uL (130-400); RED BLOOD COUNT 4.69 x10^6/uL (3.82-5.3); RED CELL DISTRIBUTION WIDTH 13.8 % (9.6-15.2)
[2020-06-05 06:18] LABS: ANION GAP 6 mmol/L (5-15); CALCIUM 8.7 mg/dL (8.5-10.1); CHLORIDE 103 mmol/L (98-107); CREATININE 1.19 mg/dL (0.55-1.02)
[2020-06-05] MEDS: INSULIN LISPRO 100 UNITS/ML, PEN SQ-INSULIN SCH ×4 (07:00→20:15)
[2020-06-05 07:07] VITALS: BP 148/81
[2020-06-05] MEDS: PHENAZOPYRIDINE 200 MG TABLET PO SCH ×3 (08:10→20:21)
[2020-06-05] MEDS: SENNA/DOCUSATE TABLET PO SCH ×2 (08:25→20:20)
[2020-06-05] MEDS: POLYETHYLENE GLYCOL 17 GM PACKET PO SCH ×2 (08:25→20:21)
[2020-06-05] MEDS: OXYcodone IR 5MG TABLET PO PRN ×2 (08:25→11:13)
[2020-06-05] MEDS: PANTOPRAZOLE 40 MG IV IVPush SCH ×2 (08:26→20:21)
[2020-06-05] MEDS: ONDANSETRON ODT 4 MG PO PRN ×2 (08:26→12:59)
[2020-06-05 12:53] VITALS: BP 146/77
[2020-06-05] MEDS: HYDROmorphone 1 MG/ML, 1ML INJ IV PRN ×3 (15:45→22:55)
[2020-06-05] MEDS: ONDANSETRON 2MG/ML, 2ML IVPush PRN ×2 (15:45→22:55)
[2020-06-05] MEDS ORDERED: BUPIVACAINE/PF-EPI 0.5% 1:200K ONE (16:43)
[2020-06-05] MEDS ORDERED: MIDAZOLAM 1 MG/ML, 2ML ONE (16:52)
[2020-06-05] MEDS ORDERED: FENTANYL PF 250 MCG/5ML ONE (16:53)
[2020-06-05] MEDS ORDERED: KETOROLAC 30 MG/1 ML ONE (16:58)
[2020-06-05] MEDS ORDERED: ONDANSETRON 2MG/ML, 2ML ONE ×2 (16:58→18:20)
[2020-06-05] MEDS ORDERED: SUCCINYLCHOLINE 20 MG/ML, 10ML ONE (16:58)
[2020-06-05] MEDS ORDERED: CEFAZOLIN 1,000 MG ONE (16:58)
[2020-06-05] MEDS ORDERED: PROPOFOL 10 MG/ML, 20ML ONE (16:58)
[2020-06-05] MEDS ORDERED: SUGAMMADEX 200 MG/2 ML IVPush ONE (16:58)
[2020-06-05] MEDS ORDERED: FENTANYL PF 100 MCG/2ML IV PRN (17:30)
[2020-06-05] MEDS ORDERED: HYDROmorphone 1 MG/ML, 1ML INJ IVPush PRN (17:30)
[2020-06-05] MEDS ORDERED: PROMETHAZINE 25 MG/ML, 1ML IVPush PRN (17:30)
[2020-06-05] MEDS ORDERED: DIAZEPAM 5 MG/ML, 2ML IVPush PRN (17:30)
[2020-06-05] MEDS ORDERED: MEPERIDINE/PF 25MG/0.5ML IVPush PRN (17:30)
[2020-06-05] MEDS ORDERED: ONDANSETRON 2MG/ML, 2ML IVPush PRN (17:30)
[2020-06-05] MEDS ORDERED: OXYcodone 5 MG/5 ML ORAL.SOL UDC PO PRN (17:30)
[2020-06-05] MEDS ORDERED: ACETAMINOPHEN 325 MG TABLET PO PRN (17:30)
[2020-06-05] MEDS ORDERED: OXYcodone 5 MG/5 ML ORAL.SOL UDC ONE (18:04)
[2020-06-05] MEDS ORDERED: FENTANYL PF 100 MCG/2ML ONE ×2 (18:04→18:37)
[2020-06-05] MEDS: FENTANYL PF 100 MCG/2ML IV PRN ×3 (18:25→18:37)
[2020-06-05] MEDS ORDERED: DIAZEPAM 5 MG/ML, 2ML ONE (18:47)
[2020-06-05 19:36] VITALS: BP 167/95
[2020-06-05] MEDS: LEVOFLOXACIN/PMX 750MG/150ML 150 ML IV SCH (21:28)
[2020-06-06 01:19] VITALS: BP 117/76
[2020-06-06] MEDS: HYDROmorphone 1 MG/ML, 1ML INJ IV PRN ×3 (03:01→12:07)
[2020-06-06] MEDS: OXYcodone IR 5MG TABLET PO PRN ×2 (06:40→16:49)
[2020-06-06] MEDS: INSULIN LISPRO 100 UNITS/ML, PEN SQ-INSULIN SCH ×3 (07:00→16:00)
[2020-06-06 07:21] VITALS: BP 147/82
[2020-06-06] MEDS: SENNA/DOCUSATE TABLET PO SCH (09:00)
[2020-06-06] MEDS: PHENAZOPYRIDINE 200 MG TABLET PO SCH ×2 (09:07→16:49)
[2020-06-06] MEDS: PANTOPRAZOLE 40 MG IV IVPush SCH (09:08)
[2020-06-06] MEDS: POLYETHYLENE GLYCOL 17 GM PACKET PO SCH (09:08)
[2020-06-06] MEDS: ONDANSETRON 2MG/ML, 2ML IVPush PRN (09:08)
[2020-06-06 12:59] VITALS: BP 134/79
[2020-06-06] MEDS ORDERED: OXYC5TAB3 PO (13:51)
[2020-06-06] MEDS ORDERED: ONDA4TAB13 PO (13:51)
[2020-06-06] MEDS ORDERED: SENN-193 PO (13:51)
[2020-06-06] MEDS ORDERED: PHEN-583 PO (13:51)
[2020-06-06] MEDS ORDERED: POLY17PO5 PO (13:51)
[2020-06-06] MEDS ORDERED: LEVO750T26 PO (13:52)
[2020-06-06] MEDS ORDERED: OXYC5SOL8 PO (14:07)
== END 2020-06-06 19:26 | disposition home or self-care (01) | DRG 354 ==
LOC: ED 15:36 → EDIP 16:57 → 3N 18:27
PROVIDERS: ADMIT Internal Medicine; ATTEND Internal Medicine
PROC: 0TC08ZZ Extirpation of Matter from Right Kidney, Via Natural or Artificial Opening Endoscopic (ICD-10-PCS; 2020-06-01)
PROC: 0TC68ZZ Extirpation of Matter from Right Ureter, Via Natural or Artificial Opening Endoscopic (ICD-10-PCS; 2020-06-01)
PROC: 0T768DZ Dilation of Right Ureter with Intraluminal Device, Via Natural or Artificial Opening Endoscopic (ICD-10-PCS; 2020-06-01)
PROC: 0DB68ZX Excision of Stomach, Via Natural or Artificial Opening Endoscopic, Diagnostic (ICD-10-PCS; 2020-06-03)
PROC: 0DB98ZX Excision of Duodenum, Via Natural or Artificial Opening Endoscopic, Diagnostic (ICD-10-PCS; 2020-06-03)
PROC: 0DB58ZX Excision of Esophagus, Via Natural or Artificial Opening Endoscopic, Diagnostic (ICD-10-PCS; 2020-06-03)
PROC: 0WUF4JZ Supplement Abdominal Wall with Synthetic Substitute, Percutaneous Endoscopic Approach (ICD-10-PCS; 2020-06-05)
PROC: 0FT44ZZ Resection of Gallbladder, Percutaneous Endoscopic Approach (ICD-10-PCS; principal; 2020-06-05 17:00)
DX: K43.6 Other and unspecified ventral hernia with obstruction, without gangrene (principal); E87.1 Hypo-osmolality and hyponatremia; N13.6 Pyonephrosis; E78.5 Hyperlipidemia, unspecified; K82.8 Other specified diseases of gallbladder; B96.20 Unspecified Escherichia coli [E. coli] as the cause of diseases classified elsewhere; K31.7 Polyp of stomach and duodenum; Z88.1 Allergy status to other antibiotic agents; Z98.1 Arthrodesis status; Z87.442 Personal history of urinary calculi
CPT/HCPCS: 36415; 71045; 74174; 74420; 76700; 76775; 78227; 80048; 80053; 81001; 82360; 82947; 82962; 83036; 83605; 83690; 83735; 85025; 87040; 87077; 87086; 87186; 87635; 88300; 88304; 88305; 88342; 93005; C1726; G0378; J0690; J1100; J1170; J1885; J1956; J2250; J2405; J2704; J3010; J3360; Q0162; Q9967; A9537; C1781; C2617; C9113; C9898; J0330; J1200; J1815; J2270; J2765; J2805; J7120

== ENCOUNTER 2020-06-11 06:50 | Inpatient (IN) | payer OTHER ==
[~2020-06-11] VITALS: Ht 170.2 cm; Wt 105.5 kg
[~2020-06-11 06:50] MED LIST changes: +LEVO750T26 PO; +ONDA4TAB13 PO; +OXYC5SOL8 PO; +OXYC5TAB3 PO; +PHEN-583 PO; +POLY17PO5 PO; +SENN-193 PO
--- NOTE | 2020-06-11 06:57 | NUR ---
PT BIB [facility] FOR ABDOMINAL PAIN AFTER A STRANGULATED HERNIA SX ON THE , PT WAS RELEASED ON THE . PT WAS NON COMPLIANT WITH PAIN AND NAUSEA MEDS. PT NOW REPORTS EXTREME NAUSEA AND VOMITING. PT REPORTS LAST BM WAS YESTERDAY. BOWEL SOUNDS NORMACTIVE, PAIN ORIGINATES IN LOWER ABDOMEN AND TRAVELS AROUND TO BILATERAL FLANKS BUT MORE SO ON THE LEFT. PT GROANING BUT NAD, VSS. PT PLACED ON SPO2/BP MONITORING. 12.5 PHENERGAN EN ROUTE. MARIAH WEAVER AT FOR EVAL AND POC BS REPORT TO kristy carcamo, pt care transferred at this time Addendum: 06/11/20 at 0715 by AMCCOMB [facility] 140 PER EMS. PIV IN PLACE ON ARRIVAL, PT MEDCIATED PER MAR
[2020-06-11] MEDS ORDERED: SODIUM CHLORIDE 0.9% 1,000ML IVBOLUS ONE (07:00)
[2020-06-11] MEDS ORDERED: DIPHENHYDRAMINE 50 MG/ML, 1ML IVPush ONE (07:00)
[2020-06-11] MEDS ORDERED: METOCLOPRAMIDE 5 MG/ML, 2ML IVPush ONE (07:00)
[2020-06-11] MEDS ORDERED: MORPHINE SULFATE 4 MG/ML, 1ML IVPush PRN (07:00)
[2020-06-11] MEDS ORDERED: ONDANSETRON 2MG/ML, 2ML IVPush ONE (07:00)
[2020-06-11] MEDS ORDERED: DIPHENHYDRAMINE 50 MG/ML, 1ML ONE (07:05)
[2020-06-11] MEDS ORDERED: METOCLOPRAMIDE 5 MG/ML, 2ML ONE (07:06)
[2020-06-11] MEDS ORDERED: ONDANSETRON 2MG/ML, 2ML ONE (07:06)
[2020-06-11] MEDS ORDERED: MORPHINE SULFATE 4 MG/ML, 1ML ONE (07:12)
[2020-06-11 07:21] LABS: MEAN CORPUSCULAR HEMOGLOBIN 30.6 pg (27.0-34.8); MEAN CORPUSCULAR HGB CONC 32.6 g/dL (32.4-35.8); PLATELET COUNT 306 x10^3/uL (130-400); RED BLOOD COUNT 5.19 x10^6/uL (3.82-5.3); RED CELL DISTRIBUTION WIDTH 13.4 % (9.6-15.2)
[2020-06-11 07:32] LABS: ALBUMIN 3.3 g/dL (3.4-5.0); ANION GAP 8 mmol/L (5-15); CALCIUM 9.4 mg/dL (8.5-10.1); CHLORIDE 98 mmol/L (98-107)
[2020-06-11 07:36] LABS: ALANINE AMINOTRANSFERASE 32 U/L (12-78); ALKALINE PHOSPHATASE 103 U/L (45-117); BILIRUBIN,TOTAL 0.5 mg/dL (0.2-1.0); CREATININE 1.08 mg/dL (0.55-1.02); TOTAL PROTEIN 7.9 g/dL (6.4-8.2)
[2020-06-11 07:40] LABS: BASOPHILS # (AUTO) 0.01 x10^3/uL (0-0.1); BASOPHILS % (AUTO) 0 % (0-1); EOSINOPHILS # (AUTO) 0.08 x10^3/uL (0-0.4); EOSINOPHILS % (AUTO) 1 % (1-7); LYMPHOCYTES # (AUTO) 1.74 x10^3/uL (1-3.4); LYMPHOCYTES % (AUTO) 15 % (22-44); MD SCAN; MONOCYTES # (AUTO) 0.68 x10^3/uL (0.2-0.8); MONOCYTES % (AUTO) 6 % (2-9); NEUTROPHILS # (AUTO) 9.39 x10^3/uL (1.8-6.8); NEUTROPHILS % (AUTO) 79 % (42-75)
--- NOTE | 2020-06-11 07:43 | NUR ---
PT TO IMAGING AT THIS TIME
[2020-06-11] MEDS ORDERED: HYDROmorphone 2 MG/ML, 1ML IVPush PRN (10:00)
[2020-06-11] MEDS ORDERED: HYDROmorphone 2 MG/ML, 1ML ONE (10:05)
--- NOTE | 2020-06-11 10:10 | NUR ---
PT MEDICATED WITH ADDITIONAL PAIN MEDICATION PER REQUEST.
[2020-06-11] MEDS ORDERED: OMNIPAQUE 350 MG/ML, 100ML BOTTLE ONE (10:39)
--- NOTE | 2020-06-11 11:06 | NUR ---
PT ASSISTED TO BSC, UA SAMPLE COLLECTED AND SENT TO LAB. RON PALACIOS NOTED, PT WITH NO FURTHER NEEDS AT THIS TIME
[2020-06-11 11:36] LABS: MICROSCOPIC INDICATED
--- NOTE | 2020-06-11 11:58 | NUR ---
PT GIVEN JUICE AND WATER PER MD REQUEST, WILL REASSESS
--- NOTE | 2020-06-11 15:32 | NUR ---
ADMITTING PROVIDER CALLED TO EVAL PT. PT BECOMING AGITATED, STATES SHE HAS BEEN WAITING TOO LONG AND WANTS TO KNOW THE PLAN. JAZMIN JACINTO COMING TO SEE PT NOW
[2020-06-11] MEDS ORDERED: PROMETHAZINE 25 MG/ML, 1ML IM PRN (16:30)
[2020-06-11] MEDS ORDERED: morphine SULFATE 10 MG/ML, 1ML IVPush PRN (16:30)
[2020-06-11] MEDS ORDERED: MAALOX/HYOSCYAMINE/LIDOCAINE 45 ML BTL PO ONE ×2 (16:30→19:00)
[2020-06-11] MEDS ORDERED: ACETAMINOPHEN 325 MG TABLET PO PRN (16:30)
--- NOTE | 2020-06-11 16:41 | NUR ---
HOSPITAL BED ORDERED FROM HOUSEKEEPING
[2020-06-11 17:32] VITALS: BP 147/85
[2020-06-11] MEDS: HEPARIN 5,000 UNITS/ML, 1ML SQ SCH (17:47)
[2020-06-11] MEDS: SODIUM CHLORIDE 0.9% 1,000 ML IV SCH (18:06)
[2020-06-11 19:48] VITALS: BP 146/86
[2020-06-11] MEDS: KETOROLAC 30 MG/1 ML IV PRN (20:00)
[2020-06-11] MEDS: METOCLOPRAMIDE 5 MG/ML, 2ML IVPush PRN (20:30)
[2020-06-11] MEDS: FAMOTIDINE 20 MG TABLET PO SCH (20:30)
[2020-06-11] MEDS ORDERED: FAMOTIDINE 20 MG/2 ML IVPush SCH (21:00)
[2020-06-11] MEDS ORDERED: GABAPENTIN 300 MG CAPSULE PO SCH (21:00)
[2020-06-11 22:15] LABS: TROPONIN I < 0.015 ng/mL (0.000-0.045)
[2020-06-12] MEDS: HEPARIN 5,000 UNITS/ML, 1ML SQ SCH ×2 (00:30→07:10)
[2020-06-12 01:11] VITALS: BP 139/86
[2020-06-12] MEDS: SODIUM CHLORIDE 0.9% 1,000 ML IV SCH (01:38)
[2020-06-12] MEDS: FAMOTIDINE 20 MG TABLET PO SCH (06:44)
[2020-06-12] MEDS: KETOROLAC 30 MG/1 ML IV PRN ×2 (06:44→13:38)
[2020-06-12 07:24] VITALS: BP 147/74
[2020-06-12] MEDS: METOCLOPRAMIDE 5 MG/ML, 2ML IVPush PRN (07:32)
[2020-06-12] MEDS: SUCRALFATE 1 GM/10 ML UDC PO SCH ×3 (08:05→15:34)
[2020-06-12 14:30] VITALS: BP 146/85
[2020-06-12] MEDS ORDERED: METO10TA82 PO (15:16)
[2020-06-12] MEDS ORDERED: SUCR1ORA5 PO (15:16)
[2020-06-12] MEDS ORDERED: FAMO20TA7 PO (15:16)
== END 2020-06-12 16:15 | disposition home or self-care (01) | DRG 683 ==
LOC: ED 07:14 → EDIP 13:38 → 4NW 17:27 → DCLOUNGE 06-12 16:10
PROVIDERS: ADMIT Internal Medicine; ATTEND Internal Medicine
DX: N17.0 Acute kidney failure with tubular necrosis (principal); E87.1 Hypo-osmolality and hyponatremia; E86.0 Dehydration; D72.810 Lymphocytopenia; E11.319 Type 2 diabetes mellitus with unspecified diabetic retinopathy without macular edema; E11.65 Type 2 diabetes mellitus with hyperglycemia; E78.5 Hyperlipidemia, unspecified; E11.40 Type 2 diabetes mellitus with diabetic neuropathy, unspecified; K21.9 Gastro-esophageal reflux disease without esophagitis; K59.00 Constipation, unspecified; Z87.442 Personal history of urinary calculi; Z87.440 Personal history of urinary (tract) infections; Z20.828 Contact with and (suspected) exposure to other viral communicable diseases; Z82.3 Family history of stroke; Z82.49 Family history of ischemic heart disease and other diseases of the circulatory system; Z89.412 Acquired absence of left great toe; Z90.49 Acquired absence of other specified parts of digestive tract
CPT/HCPCS: 36415; 71045; 74018; 74177; 80053; 81001; 83690; 84484; 85025; 87086; 96374; 96375; 99285; G0378; J1170; J1885; J2405; Q9967; J1200; J2270; J2765; J7030

== ENCOUNTER 2020-06-17 16:08 | Emergency (ER) | payer OTHER ==
[~2020-06-17] VITALS: Ht 170.2 cm; Wt 100.0 kg
[~2020-06-17 16:08] MED LIST changes: +FAMO20TA7 PO; +METO10TA82 PO; +SUCR1ORA5 PO
--- NOTE | 2020-06-17 16:30 | NUR ---
"I HAVE KIDNEY STONES" N/V BILAT FLANK PAIN. HX OF STONES. MD COTTON SENT PT IN. PT IN BED IN GOWN WITH CONT SPO2, BPQ 30 MIN. FRIEND AT BEDSIDE. SIDE RAILS UP X2, CALL LIGHT IN ROOM. 18G IV STARTED IN LEFT HAND. AWAITING MD TO SEE. PT MOANING AND CRYING IN ROOM, REPORTS PAIN 9/10. REPOSITIONED PT FOR COMFORT.
[2020-06-17] MEDS ORDERED: ONDANSETRON 2MG/ML, 2ML IVPush ONE (17:00)
[2020-06-17] MEDS ORDERED: MORPHINE SULFATE 4 MG/ML, 1ML IVPush ONE (17:00)
[2020-06-17] MEDS ORDERED: MORPHINE SULFATE 4 MG/ML, 1ML ONE (17:05)
[2020-06-17] MEDS ORDERED: ONDANSETRON 2MG/ML, 2ML ONE (17:05)
--- NOTE | 2020-06-17 17:09 | NUR ---
PT CRYING THAT SHE DID NOT GET DILAUDID AND PHENERGAN OUT LOUD IN THE ROOM, THAT IS NOT GOING TO HELP ME AT ALL. PT AGREES TO TAKE PRESCRIBED MEDICATION.
[2020-06-17 17:22] LABS: BASOPHILS # (AUTO) 0.02 x10^3/uL (0-0.1); BASOPHILS % (AUTO) 0 % (0-1); EOSINOPHILS # (AUTO) 0.13 x10^3/uL (0-0.4); EOSINOPHILS % (AUTO) 1 % (1-7); LYMPHOCYTES # (AUTO) 1.85 x10^3/uL (1-3.4); LYMPHOCYTES % (AUTO) 16 % (22-44); MD NO; MEAN CORPUSCULAR HEMOGLOBIN 30.9 pg (27.0-34.8); MEAN CORPUSCULAR HGB CONC 33.4 g/dL (32.4-35.8); MEAN CORPUSCULAR VOLUME 92.6 fL (80-100); MEAN PLATELET VOLUME 7.6 fL (7.4-10.4); MONOCYTES # (AUTO) 0.72 x10^3/uL (0.2-0.8); MONOCYTES % (AUTO) 6 % (2-9); NEUTROPHILS # (AUTO) 9.01 x10^3/uL (1.8-6.8); NEUTROPHILS % (AUTO) 77 % (42-75); PLATELET COUNT 301 x10^3/uL (130-400); RED BLOOD COUNT 5.27 x10^6/uL (3.82-5.3); RED CELL DISTRIBUTION WIDTH 13.3 % (9.6-15.2)
[2020-06-17] MEDS ORDERED: DIPHENHYDRAMINE 50 MG/ML, 1ML IVPush ONE (17:25)
[2020-06-17 17:28] LABS: ALANINE AMINOTRANSFERASE 84 U/L (12-78); ALBUMIN 3.5 g/dL (3.4-5.0); ANION GAP 10 mmol/L (5-15); CALCIUM 9.1 mg/dL (8.5-10.1); CHLORIDE 101 mmol/L (98-107); CREATININE 1.19 mg/dL (0.55-1.02)
[2020-06-17 17:31] LABS: ALKALINE PHOSPHATASE 119 U/L (45-117); BILIRUBIN,TOTAL 0.6 mg/dL (0.2-1.0); TOTAL PROTEIN 8.1 g/dL (6.4-8.2)
[2020-06-17] MEDS ORDERED: DIPHENHYDRAMINE 50 MG/ML, 1ML ONE (17:36)
[2020-06-17] MEDS ORDERED: MAALOX/HYOSCYAMINE/LIDOCAINE 45 ML BTL ONE (18:28)
[2020-06-17] MEDS ORDERED: FAMOTIDINE 20 MG/2 ML ONE (18:28)
[2020-06-17] MEDS ORDERED: MAALOX/HYOSCYAMINE/LIDOCAINE 45 ML BTL PO ONE (18:30)
[2020-06-17] MEDS ORDERED: FAMOTIDINE 20 MG TABLET PO ONE (18:30)
[2020-06-17] MEDS ORDERED: FAMOTIDINE 20 MG TABLET ONE (18:51)
--- NOTE | 2020-06-17 18:55 | NUR ---
Pt bedside report from Jacques rn. This rn to assume care of pt. Pt in room stating pain medicine is not working and frustrated "that carmencita law wont give my dilaudid, i need a supervisor hairspring fabrication." Will notify supervisor hairspring fabrication and md. Medicated per jan. Awaiting med from rx.
[2020-06-17] MEDS ORDERED: PROMETHAZINE 25 MG/ML, 1ML ONE (19:01)
--- NOTE | 2020-06-17 19:02 | NUR ---
Pa at bedside to talk to pt. crane service technician attempting to take pt to ct. Pt refusing to go to ct because "i cant with how much pain i am in." Chemic Mangler aware of pt.
[2020-06-17] MEDS ORDERED: KETAMINE 10 MG/ML, 20ML ONE (19:07)
--- NOTE | 2020-06-17 19:15 | NUR ---
Pt informed of new medication ordered by pa. Pt states "are you serious, i just have a strangulated hernia and recently discharged from the hospital. Im not playing anymore." Pa aware. Core Maker at bedside to talk to pt at this time. Called ct, pt states she will attempt to do ct.
--- NOTE | 2020-06-17 19:29 | NUR ---
Nuclear Plant Technical Advisor at bedside to talk to pt.
[2020-06-17] MEDS ORDERED: PROMETHAZINE 25 MG/ML, 1ML IM ONE (19:30)
[2020-06-17] MEDS ORDERED: KETAMINE 10 MG/ML, 20ML IV ONE (19:30)
--- NOTE | 2020-06-17 19:33 | NUR ---
Pt in ct.
--- NOTE | 2020-06-17 19:42 | NUR ---
States feeling much better after most recent medical office receptionist assistant. Given Carafate from rx.
--- NOTE | 2020-06-17 19:47 | NUR ---
Pt sats found to be in mid 80's. This rn to put oxygen on pt. When this rn went into room, spo2 went up to 96%. Pt states "oh, i was just holding my breath."
--- NOTE | 2020-06-17 20:00 | NUR ---
Pt still found holding breath in room. "i dont mean to." Put on 2L nc for comfort and O2 sat maintain above 90.
[2020-06-17 20:15] VITALS: BP 138/74
--- NOTE | 2020-06-17 20:41 | NUR ---
Ct results back. Pt up for recheck.
--- NOTE | 2020-06-17 20:51 | NUR ---
Pa at bedside for reassessment.
[2020-06-17] MEDS ORDERED: SUCRALFATE 1 GM TABLET PO SCH (21:00)
== END 2020-06-17 21:31 | disposition home or self-care (01) ==
LOC: ED 18:03
DX: R10.11 Right upper quadrant pain (principal); R10.13 Epigastric pain; R10.31 Right lower quadrant pain; K76.0 Fatty (change of) liver, not elsewhere classified; R11.2 Nausea with vomiting, unspecified; R10.33 Periumbilical pain; I10 Essential (primary) hypertension; E11.9 Type 2 diabetes mellitus without complications; Z90.49 Acquired absence of other specified parts of digestive tract
CPT/HCPCS: 36415; 74176; 80053; 83690; 85025; 96372; 96374; 96375; 99285; J1200; J2270; J2405; J2550

== ENCOUNTER 2020-06-23 19:31 | Inpatient (IN) | payer OTHER ==
[~2020-06-23] VITALS: Ht 170.2 cm; Wt 106.7 kg
[2020-06-23] MEDS ORDERED: METOCLOPRAMIDE 5 MG/ML, 2ML ONE (19:49)
[2020-06-23] MEDS ORDERED: KETOROLAC 30 MG/1 ML ONE (19:50)
[2020-06-23] MEDS ORDERED: ONDANSETRON 2MG/ML, 2ML ONE (19:50)
[2020-06-23] MEDS ORDERED: HYDROmorphone 1 MG/ML, 1ML INJ ONE (19:50)
[2020-06-23] MEDS: HYDROmorphone 1 MG/ML, 1ML INJ IVPush PRN ×2 (19:55→23:33)
[2020-06-23] MEDS ORDERED: METOCLOPRAMIDE 5 MG/ML, 2ML IVPush ONE (20:00)
[2020-06-23] MEDS ORDERED: SODIUM CHLORIDE 0.9% 1,000ML IVBOLUS ONE (20:00)
[2020-06-23] MEDS ORDERED: KETOROLAC 30 MG/1 ML IVPush ONE (20:00)
[2020-06-23] MEDS ORDERED: SODIUM CHLORIDE FLUSH 10ML SYR IVF ONE (20:00)
[2020-06-23] MEDS ORDERED: ONDANSETRON 2MG/ML, 2ML IVPush ONE (20:00)
[2020-06-23 20:24] LABS: BASOPHILS # (AUTO) 0.04 x10^3/uL (0-0.1); BASOPHILS % (AUTO) 1 % (0-1); EOSINOPHILS # (AUTO) 0.12 x10^3/uL (0-0.4); EOSINOPHILS % (AUTO) 1 % (1-7); LYMPHOCYTES % (AUTO) 20 % (22-44); MD NO; MEAN CORPUSCULAR HGB CONC 33.6 g/dL (32.4-35.8); MEAN CORPUSCULAR VOLUME 92.3 fL (80-100); MEAN PLATELET VOLUME 7.6 fL (7.4-10.4); MONOCYTES # (AUTO) 0.67 x10^3/uL (0.2-0.8); MONOCYTES % (AUTO) 7 % (2-9); NEUTROPHILS # (AUTO) 6.61 x10^3/uL (1.8-6.8); NEUTROPHILS % (AUTO) 71 % (42-75); PLATELET COUNT 243 x10^3/uL (130-400); RED BLOOD COUNT 4.94 x10^6/uL (3.82-5.3); RED CELL DISTRIBUTION WIDTH 12.9 % (9.6-15.2)
--- NOTE | 2020-06-23 20:26 | NUR ---
STRAIGHT CATH UA COLLECTED PER ORDER. PT. TOLERATED WELL. REPORTS PAIN DOWN TO 2/10 AFTER MEDS. DENIES OTHER NEEDS. ALL SAFETY MEASURES OSBERVED.
[2020-06-23 20:31] LABS: ALANINE AMINOTRANSFERASE 91 U/L (12-78); ALBUMIN 3.4 g/dL (3.4-5.0); ANION GAP 10 mmol/L (5-15); CHLORIDE 105 mmol/L (98-107); CREATININE 1.04 mg/dL (0.55-1.02)
[2020-06-23 20:34] LABS: ALKALINE PHOSPHATASE 107 U/L (45-117); BILIRUBIN,TOTAL 0.5 mg/dL (0.2-1.0); TOTAL PROTEIN 7.7 g/dL (6.4-8.2)
[2020-06-23 20:35] LABS: MICROSCOPIC AUTO
[2020-06-23] MEDS ORDERED: PROMETHAZINE 25 MG/ML, 1ML ONE (21:26)
--- NOTE | 2020-06-23 21:28 | NUR ---
PT. REQUESTING TO USE BS COMMODE. UPON SITTING UP PT. REPORTED FEELING VERY DIZZY AND STARTED DRY-HEAVING. C/O RETURN OF NAUSEA. PER DR. BROOKS 25MG IM PHENERGAN TO BE ADMIN. PT. UP FOR RECHECK AT THIS TIME.
--- NOTE | 2020-06-23 21:43 | NUR ---
EKG WAS COMPLETED AFTER PT. EPISODE OF DIZZINESS AND PRESENTED TO DR. CRUM. NO IN USE FOR VOIDING AT THIS TIME.
[2020-06-23] MEDS ORDERED: PROMETHAZINE 25 MG/ML, 1ML IM ONE (22:00)
--- NOTE | 2020-06-23 22:08 | NUR ---
[facility] IN TO EVAL PT. FOR ADMISSION.
[2020-06-23] MEDS ORDERED: BISACODYL 10 MG SUPP PR PRN (22:30)
[2020-06-23] MEDS ORDERED: MELATONIN 5 MG TABLET PO PRN (22:30)
[2020-06-23] MEDS ORDERED: hydrALAzine 20 MG/ML, 1ML IVPush PRN (22:30)
[2020-06-23] MEDS ORDERED: POLYETHYLENE GLYCOL 17 GM PACKET PO PRN (22:30)
[2020-06-23] MEDS ORDERED: ACETAMINOPHEN 325 MG TABLET PO PRN (22:30)
[2020-06-23] MEDS ORDERED: PROMETHAZINE 25 MG/ML, 1ML IM PRN (22:30)
--- NOTE | 2020-06-23 22:55 | NUR ---
Report given to BILL GRIFFIN. All questions answered.
[2020-06-23] MEDS ORDERED: SITAGLIPTIN PHOS PO SCH (23:00)
[2020-06-23] MEDS ORDERED: [UNRECOGNIZED DRUG - OTHER] PO SCH (23:00)
[2020-06-23] MEDS ORDERED: ONDANSETRON ODT 4 MG PO PRN (23:00)
[2020-06-23] MEDS ORDERED: METFORMIN HCL PO SCH (23:00)
[2020-06-23 23:10] VITALS: BP 124/76
[2020-06-23] MEDS: SENNA MC SCH (23:30)
[2020-06-23] MEDS: POLYETHYLENE GLYCOL MC SCH (23:30)
[2020-06-24] MEDS: CEFTRIAXONE PMX 1GM/50ML 50 ML IV SCH ×2 (00:04→23:32)
[2020-06-24] MEDS: morphine SULFATE 10 MG/ML, 1ML IVPush PRN ×5 (00:04→20:58)
[2020-06-24] MEDS: ONDANSETRON 2MG/ML, 2ML IVPush PRN ×2 (00:11→17:17)
[2020-06-24 00:39] VITALS: BP 121/73
[2020-06-24] MEDS: METOCLOPRAMIDE 5 MG/ML, 2ML IVPush PRN ×3 (05:27→20:59)
[2020-06-24 05:44] LABS: BASOPHILS # (AUTO) 0.04 x10^3/uL (0-0.1); BASOPHILS % (AUTO) 1 % (0-1); EOSINOPHILS # (AUTO) 0.16 x10^3/uL (0-0.4); EOSINOPHILS % (AUTO) 2 % (1-7); LYMPHOCYTES # (AUTO) 2.58 x10^3/uL (1-3.4); LYMPHOCYTES % (AUTO) 30 % (22-44); MD NO; MEAN CORPUSCULAR HEMOGLOBIN 30.8 pg (27.0-34.8); MEAN CORPUSCULAR HGB CONC 33.2 g/dL (32.4-35.8); MEAN CORPUSCULAR VOLUME 92.8 fL (80-100); MEAN PLATELET VOLUME 7.8 fL (7.4-10.4); MONOCYTES # (AUTO) 0.63 x10^3/uL (0.2-0.8); MONOCYTES % (AUTO) 8 % (2-9); NEUTROPHILS # (AUTO) 5.06 x10^3/uL (1.8-6.8); NEUTROPHILS % (AUTO) 60 % (42-75); PLATELET COUNT 247 x10^3/uL (130-400); RED BLOOD COUNT 4.83 x10^6/uL (3.82-5.3); RED CELL DISTRIBUTION WIDTH 13.3 % (9.6-15.2)
[2020-06-24 05:53] LABS: ANION GAP 7 mmol/L (5-15); CALCIUM 8.6 mg/dL (8.5-10.1); CHLORIDE 108 mmol/L (98-107); CREATININE 0.82 mg/dL (0.55-1.02)
[2020-06-24 06:56] VITALS: BP 111/70
[2020-06-24] MEDS ORDERED: POTASSIUM CHLORIDE 20 MEQ PACKET PO ONE (07:30)
[2020-06-24] MEDS: SENNA MC SCH ×3 (07:30→23:30)
[2020-06-24] MEDS: POLYETHYLENE GLYCOL MC SCH ×3 (07:30→23:30)
[2020-06-24] MEDS ORDERED: GADOTERATE 10 MMOL/20 ML SYR ONE (08:05)
[2020-06-24] MEDS ORDERED: ICN METOCLOPRAMIDE 0.5 MG/ML ORAL PO SCH (09:00)
[2020-06-24] MEDS: PHENAZOPYRIDINE 200 MG TABLET PO SCH ×3 (09:00→20:59)
[2020-06-24] MEDS ORDERED: SENNA/DOCUSATE TABLET PO SCH (09:00)
[2020-06-24] MEDS ORDERED: EXENATIDE SQ SCH (09:00)
[2020-06-24] MEDS ORDERED: TEMPLATE NON-FORMULARY MED. (Dapagliflozin Propanediol (Farxiga) 10 MG) PO SCH (09:00)
[2020-06-24] MEDS ORDERED: FAMOTIDINE 20 MG/2 ML IVPush SCH (09:00)
[2020-06-24] MEDS: POLYETHYLENE GLYCOL 17 GM PACKET PO SCH ×2 (09:18→20:59)
[2020-06-24] MEDS: SUCRALFATE 1 GM/10 ML UDC PO SCH ×4 (09:18→20:59)
[2020-06-24] MEDS: SENNA/DOCUSATE TABLET PO SCH ×2 (09:21→21:00)
[2020-06-24] MEDS: FAMOTIDINE 20 MG TABLET PO SCH ×2 (09:22→20:59)
[2020-06-24] MEDS: INSULIN LISPRO 100 UNITS/ML, PEN SQ-INSULIN SCH ×4 (09:23→21:00)
[2020-06-24] MEDS ORDERED: KETOROLAC 30 MG/1 ML IVPush PRN (11:30)
[2020-06-24] MEDS ORDERED: HYDROcodone/APAP 5/325 TABLET PO PRN (11:30)
[2020-06-24] MEDS: MECLIZINE 25 MG TABLET PO PRN (12:20)
[2020-06-24 16:40] VITALS: BP_SYST 113; BP_SYST 120; BP_SYST 162; BP_DIAS 76; BP_DIAS 85; BP_DIAS 94
[2020-06-24] MEDS: NS + 20MEQ KCL 1,000 ML IV SCH (18:06)
[2020-06-24 18:33] VITALS: BP 165/76
[2020-06-24] MEDS: GABAPENTIN 300 MG CAPSULE PO SCH (20:59)
[2020-06-24] MEDS: ENOXAPARIN 40 MG/0.4 ML SQ SCH (20:59)
[2020-06-25] VITALS (7 sets, daily range): BP systolic 120–155; BP diastolic 81–87
[2020-06-25 05:23] LABS: ALBUMIN 2.9 g/dL (3.4-5.0); ANION GAP 6 mmol/L (5-15); CALCIUM 8.5 mg/dL (8.5-10.1); CHLORIDE 109 mmol/L (98-107)
[2020-06-25 05:27] LABS: ALANINE AMINOTRANSFERASE 79 U/L (12-78); ALKALINE PHOSPHATASE 89 U/L (45-117); BILIRUBIN,TOTAL 0.3 mg/dL (0.2-1.0); CREATININE 0.82 mg/dL (0.55-1.02); TOTAL PROTEIN 6.6 g/dL (6.4-8.2)
[2020-06-25] MEDS: morphine SULFATE 10 MG/ML, 1ML IVPush PRN ×2 (06:14→10:03)
[2020-06-25] MEDS: ONDANSETRON 2MG/ML, 2ML IVPush PRN (06:14)
[2020-06-25] MEDS ORDERED: BUPIVACAINE/PF-EPI 0.5% 1:200K ONE (06:53)
[2020-06-25] MEDS ORDERED: MINERAL OIL 10 ML VIAL MC ONE (06:53)
[2020-06-25] MEDS ORDERED: BACITRACIN 50,000 UNIT ONE (06:53)
[2020-06-25] MEDS ORDERED: VANCOMYCIN 1,000 MG ONE (06:53)
[2020-06-25] MEDS: INSULIN LISPRO 100 UNITS/ML, PEN SQ-INSULIN SCH ×4 (07:00→20:23)
[2020-06-25] MEDS: SENNA MC SCH ×2 (07:30→15:30)
[2020-06-25] MEDS: POLYETHYLENE GLYCOL MC SCH ×2 (07:30→15:30)
[2020-06-25] MEDS: SUCRALFATE 1 GM/10 ML UDC PO SCH ×4 (08:17→20:47)
[2020-06-25] MEDS: FAMOTIDINE 20 MG TABLET PO SCH ×2 (10:01→20:47)
[2020-06-25] MEDS: SENNA/DOCUSATE TABLET PO SCH ×2 (10:02→20:51)
[2020-06-25] MEDS: MECLIZINE 25 MG TABLET PO PRN ×2 (10:02→23:26)
[2020-06-25] MEDS: POLYETHYLENE GLYCOL 17 GM PACKET PO SCH ×2 (10:02→20:51)
[2020-06-25] MEDS: NS + 20MEQ KCL 1,000 ML IV SCH ×3 (10:02→22:20)
[2020-06-25] MEDS: PHENAZOPYRIDINE 200 MG TABLET PO SCH ×3 (10:02→20:51)
[2020-06-25] MEDS ORDERED: MAGNESIUM HYDROXIDE 8%, 30ML UDC PO PRN (10:30)
[2020-06-25] MEDS: METOCLOPRAMIDE 5 MG/ML, 2ML IVPush SCH ×3 (12:17→20:49)
[2020-06-25] MEDS: KETOROLAC 30 MG/1 ML IVPush SCH ×3 (12:18→22:19)
[2020-06-25] MEDS: ENOXAPARIN 40 MG/0.4 ML SQ SCH (20:47)
[2020-06-25] MEDS: GABAPENTIN 300 MG CAPSULE PO SCH (20:48)
[2020-06-25] MEDS: CEFTRIAXONE PMX 1GM/50ML 50 ML IV SCH (23:26)
[2020-06-26 01:53] VITALS: BP 130/69
[2020-06-26] MEDS: METOCLOPRAMIDE 5 MG/ML, 2ML IVPush SCH ×4 (04:30→22:52)
[2020-06-26] MEDS: MECLIZINE 25 MG TABLET PO PRN (04:54)
[2020-06-26] MEDS: SUCRALFATE 1 GM/10 ML UDC PO SCH ×4 (04:54→20:43)
[2020-06-26] MEDS: KETOROLAC 30 MG/1 ML IVPush SCH ×4 (04:54→22:52)
[2020-06-26] MEDS: INSULIN LISPRO 100 UNITS/ML, PEN SQ-INSULIN SCH ×4 (07:00→21:00)
[2020-06-26 07:20] VITALS: BP 136/75
[2020-06-26] MEDS ORDERED: HYDR-3237 PO (08:55)
[2020-06-26] MEDS ORDERED: MECL-101 PO (08:55)
[2020-06-26] MEDS ORDERED: METO10TA82 PO (08:55)
[2020-06-26] MEDS: POLYETHYLENE GLYCOL 17 GM PACKET PO SCH ×2 (09:00→22:51)
[2020-06-26] MEDS: SENNA/DOCUSATE TABLET PO SCH ×2 (09:00→21:00)
[2020-06-26] MEDS: NS + 20MEQ KCL 1,000 ML IV SCH (10:09)
[2020-06-26] MEDS: FAMOTIDINE 20 MG TABLET PO SCH ×2 (10:09→22:51)
[2020-06-26] MEDS: ONDANSETRON 2MG/ML, 2ML IVPush PRN ×2 (10:10→21:11)
[2020-06-26] MEDS ORDERED: MORPHINE SULFATE 4 MG/ML, 1ML IVPush ONE ×2 (12:30→21:00)
[2020-06-26] MEDS ORDERED: GADOTERATE 10 MMOL/20 ML SYR ONE (14:22)
[2020-06-26 16:19] VITALS: BP 147/87
[2020-06-26] MEDS ORDERED: LIDODERM 5% PATCH TD SCH (17:00)
[2020-06-26] MEDS: DEXAMETHASONE 4 MG/ML, 1ML IVPush SCH ×2 (17:09→22:52)
[2020-06-26 19:59] VITALS: BP 163/88
[2020-06-26] MEDS: GABAPENTIN 300 MG CAPSULE PO SCH (22:51)
[2020-06-26] MEDS: ENOXAPARIN 40 MG/0.4 ML SQ SCH (22:52)
[2020-06-26] MEDS: CEFTRIAXONE PMX 1GM/50ML 50 ML IV SCH (22:53)
[2020-06-27] MEDS: NS + 20MEQ KCL 1,000 ML IV SCH (00:34)
[2020-06-27 01:07] VITALS: BP 121/78
[2020-06-27] MEDS: DEXAMETHASONE 4 MG/ML, 1ML IVPush SCH ×2 (04:55→11:46)
[2020-06-27] MEDS: METOCLOPRAMIDE 5 MG/ML, 2ML IVPush SCH ×2 (04:55→10:56)
[2020-06-27] MEDS: KETOROLAC 30 MG/1 ML IVPush SCH ×2 (04:55→10:56)
[2020-06-27 07:25] VITALS: BP 112/71
[2020-06-27] MEDS: SUCRALFATE 1 GM/10 ML UDC PO SCH ×2 (08:11→11:46)
[2020-06-27] MEDS: FAMOTIDINE 20 MG TABLET PO SCH (08:12)
[2020-06-27] MEDS: SENNA/DOCUSATE TABLET PO SCH (08:12)
[2020-06-27] MEDS: INSULIN LISPRO 100 UNITS/ML, PEN SQ-INSULIN SCH ×2 (08:12→11:46)
[2020-06-27] MEDS: ONDANSETRON 2MG/ML, 2ML IVPush PRN (08:12)
[2020-06-27] MEDS: POLYETHYLENE GLYCOL 17 GM PACKET PO SCH (08:13)
[2020-06-27] MEDS ORDERED: DEXA4TAB66 PO (08:55)
[2020-06-27 13:26] VITALS: BP 173/97
== END 2020-06-27 13:55 | disposition home health service (06) | DRG 552 ==
LOC: ED 22:17 → INTOOBSV 22:51 → EDIP 22:51 → 3N 23:02 → OBSVTOIN 06-24 14:57 → DCLOUNGE 06-27 13:42
PROVIDERS: ADMIT Family Medicine; ATTEND Family Medicine
PROC: 0T9B30Z Drainage of Bladder with Drainage Device, Percutaneous Approach (ICD-10-PCS; principal; 2020-06-23)
DX: M48.061 Spinal stenosis, lumbar region without neurogenic claudication (principal); N39.0 Urinary tract infection, site not specified; M51.37 Other intervertebral disc degeneration, lumbosacral region; M43.16 Spondylolisthesis, lumbar region; K81.9 Cholecystitis, unspecified; K59.00 Constipation, unspecified; I10 Essential (primary) hypertension; E78.5 Hyperlipidemia, unspecified; M51.36 Other intervertebral disc degeneration, lumbar region; E11.319 Type 2 diabetes mellitus with unspecified diabetic retinopathy without macular edema; N20.0 Calculus of kidney; Z76.5 Malingerer [conscious simulation]; Z90.49 Acquired absence of other specified parts of digestive tract; Z87.442 Personal history of urinary calculi; Z68.36 Body mass index [BMI] 36.0-36.9, adult; Z88.8 Allergy status to other drugs, medicaments and biological substances
CPT/HCPCS: 36415; 70553; 72110; 72158; 74018; 80048; 80053; 81001; 82962; 83605; 83690; 84145; 85025; 87040; 87086; 93005; 96361; 96372; 96374; G0378; J0696; J1100; J1170; J1650; J1885; J2405; J2550; J3370; J3480; Q0162; A9575; J1815; J2270; J2765; J7030

== ENCOUNTER 2021-05-04 09:12 | Outpatient (CLI) | payer OTHER | END 2021-05-04 23:59 | disposition home or self-care (01) | LOC: WOUND 09:12 | PROVIDERS: ATTEND Internal Medicine | DX: E11.621 Type 2 diabetes mellitus with foot ulcer (principal); L97.522 Non-pressure chronic ulcer of other part of left foot with fat layer exposed; L03.116 Cellulitis of left lower limb; L84 Corns and callosities; E11.610 Type 2 diabetes mellitus with diabetic neuropathic arthropathy; Z89.412 Acquired absence of left great toe; Z89.422 Acquired absence of other left toe(s); Z89.421 Acquired absence of other right toe(s); Z90.49 Acquired absence of other specified parts of digestive tract | CPT/HCPCS: 11042; 99215; G0463 ==

== ENCOUNTER → 2021-05-04 | Outpatient (CLI) | payer OTHER ==
[~2021-05-04] MED LIST changes: +DEXA4TAB66 PO; +HYDR-3237 PO; +MECL-101 PO; -OXYC5TAB3 PO; +OXYC5TAB98 PO
== END | disposition home or self-care (01) ==
LOC: CFH 10:41
PROVIDERS: ATTEND Internal Medicine
DX: E11.621 Type 2 diabetes mellitus with foot ulcer (principal); L97.529 Non-pressure chronic ulcer of other part of left foot with unspecified severity

== ENCOUNTER 2021-05-11 09:30 | Outpatient (CLI) | payer OTHER | END 2021-05-11 23:59 | disposition home or self-care (01) | LOC: WOUND 09:30 | PROVIDERS: ATTEND Internal Medicine | DX: E11.621 Type 2 diabetes mellitus with foot ulcer (principal); I70.245 Atherosclerosis of native arteries of left leg with ulceration of other part of foot; L97.522 Non-pressure chronic ulcer of other part of left foot with fat layer exposed; L84 Corns and callosities; E11.610 Type 2 diabetes mellitus with diabetic neuropathic arthropathy; Z89.412 Acquired absence of left great toe; Z89.422 Acquired absence of other left toe(s); Z89.421 Acquired absence of other right toe(s); Z90.49 Acquired absence of other specified parts of digestive tract | CPT/HCPCS: 11042 ==

== ENCOUNTER → 2021-05-19 | Outpatient (CLI) | payer OTHER | END | disposition home or self-care (01) | LOC: WOUND 11:14 | PROVIDERS: ATTEND Nurse Practitioner Family | DX: E11.621 Type 2 diabetes mellitus with foot ulcer (principal); L97.522 Non-pressure chronic ulcer of other part of left foot with fat layer exposed; L84 Corns and callosities; E11.610 Type 2 diabetes mellitus with diabetic neuropathic arthropathy; Z89.412 Acquired absence of left great toe; Z89.422 Acquired absence of other left toe(s); Z89.421 Acquired absence of other right toe(s); Z90.49 Acquired absence of other specified parts of digestive tract | CPT/HCPCS: 97597 ==

== ENCOUNTER → 2021-05-20 | Outpatient (CLI) | payer OTHER | END | disposition home or self-care (01) | LOC: CVU 08:00 | PROVIDERS: ATTEND Family Medicine | DX: E11.621 Type 2 diabetes mellitus with foot ulcer (principal); L97.522 Non-pressure chronic ulcer of other part of left foot with fat layer exposed; I70.8 Atherosclerosis of other arteries | CPT/HCPCS: 93922; 93925 ==

== ENCOUNTER 2021-07-03 10:59 | Outpatient (CLI) | payer OTHER | END 2021-07-03 23:59 | disposition home or self-care (01) | LOC: WOUND 10:59 | PROVIDERS: ATTEND Nurse Practitioner Family | DX: E11.621 Type 2 diabetes mellitus with foot ulcer (principal); I70.245 Atherosclerosis of native arteries of left leg with ulceration of other part of foot; L97.522 Non-pressure chronic ulcer of other part of left foot with fat layer exposed; L84 Corns and callosities; E11.610 Type 2 diabetes mellitus with diabetic neuropathic arthropathy; Z89.412 Acquired absence of left great toe; Z89.422 Acquired absence of other left toe(s); Z89.421 Acquired absence of other right toe(s); Z90.49 Acquired absence of other specified parts of digestive tract | CPT/HCPCS: 15275; Q4133 ==

== ENCOUNTER 2021-07-10 10:49 | Outpatient (CLI) | payer OTHER | END 2021-07-10 23:59 | disposition home or self-care (01) | LOC: WOUND 10:49 | PROVIDERS: ATTEND Internal Medicine | DX: E11.621 Type 2 diabetes mellitus with foot ulcer (principal); I70.245 Atherosclerosis of native arteries of left leg with ulceration of other part of foot; L97.522 Non-pressure chronic ulcer of other part of left foot with fat layer exposed; L84 Corns and callosities; E11.610 Type 2 diabetes mellitus with diabetic neuropathic arthropathy; Z89.412 Acquired absence of left great toe; Z89.422 Acquired absence of other left toe(s); Z89.421 Acquired absence of other right toe(s); Z90.49 Acquired absence of other specified parts of digestive tract | CPT/HCPCS: 15275; Q4101 ==

== ENCOUNTER 2021-07-17 10:35 | Outpatient (CLI) | payer OTHER | END 2021-07-17 23:59 | disposition home or self-care (01) | LOC: WOUND 10:35 | PROVIDERS: ATTEND Internal Medicine | DX: E11.621 Type 2 diabetes mellitus with foot ulcer (principal); I70.245 Atherosclerosis of native arteries of left leg with ulceration of other part of foot; L97.522 Non-pressure chronic ulcer of other part of left foot with fat layer exposed; L84 Corns and callosities; E11.610 Type 2 diabetes mellitus with diabetic neuropathic arthropathy; Z89.412 Acquired absence of left great toe; Z89.422 Acquired absence of other left toe(s); Z89.421 Acquired absence of other right toe(s); Z90.49 Acquired absence of other specified parts of digestive tract | CPT/HCPCS: 15275; Q4101 ==

== ENCOUNTER 2021-07-24 10:09 | Outpatient (CLI) | payer OTHER | END 2021-07-24 23:59 | disposition home or self-care (01) | LOC: WOUND 10:09 | PROVIDERS: ATTEND Internal Medicine | DX: E11.621 Type 2 diabetes mellitus with foot ulcer (principal); I70.245 Atherosclerosis of native arteries of left leg with ulceration of other part of foot; L97.522 Non-pressure chronic ulcer of other part of left foot with fat layer exposed; L84 Corns and callosities; E11.610 Type 2 diabetes mellitus with diabetic neuropathic arthropathy; Z89.412 Acquired absence of left great toe; Z89.422 Acquired absence of other left toe(s); Z89.421 Acquired absence of other right toe(s); Z90.49 Acquired absence of other specified parts of digestive tract | CPT/HCPCS: 99213 ==

== ENCOUNTER 2021-07-31 10:11 | Outpatient (CLI) | payer OTHER | END 2021-07-31 23:59 | disposition home or self-care (01) | LOC: WOUND 10:11 | PROVIDERS: ATTEND Internal Medicine | DX: E11.621 Type 2 diabetes mellitus with foot ulcer (principal); I70.245 Atherosclerosis of native arteries of left leg with ulceration of other part of foot; L97.522 Non-pressure chronic ulcer of other part of left foot with fat layer exposed; L84 Corns and callosities; E11.610 Type 2 diabetes mellitus with diabetic neuropathic arthropathy; Z89.412 Acquired absence of left great toe; Z89.422 Acquired absence of other left toe(s); Z89.421 Acquired absence of other right toe(s); Z90.49 Acquired absence of other specified parts of digestive tract | CPT/HCPCS: 15275; Q4101 ==

== ENCOUNTER → 2021-08-07 | Outpatient (CLI) | payer OTHER | END | disposition home or self-care (01) | LOC: WOUND 08:00 | PROVIDERS: ATTEND Internal Medicine | DX: E11.621 Type 2 diabetes mellitus with foot ulcer (principal); I70.245 Atherosclerosis of native arteries of left leg with ulceration of other part of foot; L97.522 Non-pressure chronic ulcer of other part of left foot with fat layer exposed; L84 Corns and callosities; E11.610 Type 2 diabetes mellitus with diabetic neuropathic arthropathy; Z89.412 Acquired absence of left great toe; Z89.422 Acquired absence of other left toe(s); Z89.421 Acquired absence of other right toe(s); Z90.49 Acquired absence of other specified parts of digestive tract ==